=== PATIENT | female | born 1980 | race Caucasian/White ===

== ENCOUNTER 2019-01-16 00:26 | Inpatient (IN) | payer BC ==
[~2019-01-16] VITALS: Ht 180.3 cm; Wt 88.5 kg
[2019-01-16] MEDS ORDERED: PREN-196 PO (00:41)
[2019-01-16 00:42] VITALS: BP 136/91
[2019-01-16] MEDS ORDERED: FOLI0.4T2 PO (00:42)
[2019-01-16] MEDS ORDERED: FERR159T2 PO (00:42)
[2019-01-16] MEDS ORDERED: LACTATED RINGERS 1000ML IV PRN (00:45)
[2019-01-16 01:00] LABS: APPEARANCE,URINE Clear (CLEAR); BILIRUBIN,URINE Negative (NEGATIVE); COLOR,URINE Yellow (YELLOW); GLUCOSE, URINE (UA) Negative (NEGATIVE); KETONES,URINE Negative (NEGATIVE); LEUKOCYTE ESTERASE ,URINE Negative (NEGATIVE); NITRATE,URINE Negative (NEGATIVE); OCCULT BLOOD,URINE Negative (NEGATIVE); PH,URINE 7.5 (5.0-8.0); PROTEIN,URINE Negative (NEGATIVE)
[2019-01-16] MEDS ORDERED: LACTATED RINGERS 1000ML 1,000 ML IV PRN (01:35)
[2019-01-16 01:55] LABS: HEMATOCRIT 38.8 % (36-48); MEAN CORPUSCULAR HEMOGLOBIN 28.9 pg (27.0-33.0); MEAN CORPUSCULAR HGB CONC 34.3 g/dL (32.0-36.0); MEAN CORPUSCULAR VOLUME 84.2 fL (79-99); NUCLEATED RED BLOOD CELLS 0.1 % (0.0-0.19); PLATELET COUNT (AUTO) 181 K/uL (130-400); RED BLOOD CELL COUNT(AUTO) 4.61 MIL/uL (4.00-5.50); RED CELL DISTRIBUTION WIDTH 15.1 % (11.0-15.5); WHITE BLOOD COUNT (AUTO) 6.4 K/uL (4.8-10.8)
[2019-01-16] MEDS: OXYTOCIN-LR 20 UNITS/1000 ML 1,000 ML IV PRN ×2 (07:15→08:30)
[2019-01-16] MEDS ORDERED: LANOLIN 30GM OINTMENT TP PRN (07:45)
[2019-01-16] MEDS ORDERED: WITCH HAZEL 1 PAD TP PRN (07:45)
[2019-01-16] MEDS ORDERED: ACETAMINOPHEN-CODEINE 300/30MG TAB PO PRN (07:45)
[2019-01-16] MEDS ORDERED: BENZOCAINE/LANOLIN/ALOE VERA 60 ML AEROSOL TP PRN (07:45)
[2019-01-16] MEDS ORDERED: ACETAMINOPHEN 325 MG TAB PO PRN (07:45)
[2019-01-16] MEDS: DOCUSATE SODIUM 100 MG CAP PO SCH ×2 (09:00→20:40)
[2019-01-16] MEDS: IBUPROFEN 600 MG TABLET PO PRN ×2 (09:33→20:42)
[2019-01-16 11:49] VITALS: BP 113/70
[2019-01-16] MEDS ORDERED: DIPH,PERTUSS(ACELL),TET VAC/PF 0.5 ML VIAL IM SCH (14:30)
[2019-01-16 17:07] VITALS: BP 113/73
[2019-01-16 19:34] VITALS: BP 110/75
[2019-01-16 23:28] VITALS: BP 91/57
[2019-01-17 03:34] VITALS: BP 91/50
[2019-01-17 07:56] VITALS: BP 124/79
--- NOTE | 2019-01-17 08:05 | NUR ---
MD COELLO ROUNDING ON PATIENT. DISCHARGE POC DISCUSSED. PATIENT OKAY FOR DISCHARGE.
[2019-01-17 08:12] LABS: HEPATITIS Bs ANTIGEN SCREEN P Negative (Negative)
[2019-01-17] MEDS: DOCUSATE SODIUM 100 MG CAP PO SCH (08:54)
[2019-01-17] MEDS: IBUPROFEN 600 MG TABLET PO PRN (08:54)
--- NOTE | 2019-01-17 09:48 | NUR ---
DISCHARGE INSTRUCTIONS READ AND EXPLAINED TO PATIENT. HEMORRHAGE HANDOUT HIGHLIGHTED AND REVIEWED WITH PATIENT. QUESTIONS INVITED AND ANSWERED. NO NEW PRESCRIPTIONS LEFT. PT. VOICED UNDERSTANDING ON DISCHARGE INSTRUCTIONS.
--- NOTE | 2019-01-17 10:50 | NUR ---
DISCHARGE PT LEFT UNIT VIA WHEELCHAIR WITH BABY IN ARMS. PERSONAL VEHICLE USED FOR TRANSPORTATION. BABY SECURE IN CARSEAT. NO COMPLAINTS OR CONCERNS ADDRESSED FROM PATIENT ON DISCHARGE.
== END 2019-01-17 10:50 | disposition home or self-care (01) | DRG 807 ==
LOC: EDH 00:26 → OBSVTOIN 00:27 → LDH 00:27 → WSH 11:45
PROVIDERS: ADMIT Specialist; ATTEND Specialist
PROC: 10E0XZZ Delivery of Products of Conception, External Approach (ICD-10-PCS; principal; 2019-01-16)
PROC: 10907ZC Drainage of Amniotic Fluid, Therapeutic from Products of Conception, Via Natural or Artificial Opening (ICD-10-PCS; 2019-01-16)
PROC: 3E0234Z Introduction of Serum, Toxoid and Vaccine into Muscle, Percutaneous Approach (ICD-10-PCS; 2019-01-16)
DX: O69.81X0 Labor and delivery complicated by cord around neck, without compression, not applicable or unspecified (principal); Z37.0 Single live birth; Z3A.37 37 weeks gestation of pregnancy; Z23 Encounter for immunization
CPT/HCPCS: 36415; 81003; 85027; 86592; 86850; 86900; 86901; 87340; 90715; A4351; A4606; G0378; J2590; J7120

== ENCOUNTER → 2022-05-25 | Outpatient (CLI) | payer BC ==
[~2022-05-25] MED LIST: FERR159T2 PO; FOLI0.4T6 PO; PREN-196 PO
== END | disposition home or self-care (01) ==
LOC: RAH 10:28
PROVIDERS: ATTEND Obstetrics & Gynecology
DX: N63.21 Unspecified lump in the left breast, upper outer quadrant (principal); N64.4 Mastodynia; R92.2 Inconclusive mammogram
CPT/HCPCS: 77066